=== PATIENT | female | born 1975 ===

== ENCOUNTER 2016-08-10 23:32 | Emergency (ER) | payer OTHER ==
--- NOTE | 2016-08-11 00:26 | ED ---
Influenza-Like Illness - HPI Summary HPI Summary: Pt here w/ influenza-like sx x 5 days. Started as swelling of neck glands w/ ST/ irritation. She then developed MOELLER, nasal congestion, intermittent otalgia and PND. She now has a dry cough - chest burning w/ deep breath and body aches all over. Reduced appetite and stomach is "off". No yash nausea, vomiting, diarrhea. 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 She has tried mouth wash and OTC pain meds. Here tonight because she's feeling worse and wants to know what's wrong. Denies h/o pneumonia, bronchitis, RSV, asthma. H/o smoking 10 years ago - otherwise healthy. - History of Current Complaint Chief Complaint: EDFluSymptoms Time Seen by Provider: 08/10/16 23:44 Hx Obtained From: Patient - Allergy/Home Medications Allergies/Adverse Reactions: Allergies Allergy/AdvReac Type Severity Reaction Status Date / Time No Known Allergies Allergy Verified 08/10/16 23:39 PMH/Surg Hx/FS Hx/Imm Hx Previously Healthy: Yes Endocrine/Hematology History: Denies: Hx Diabetes, Autoimmune Disease Respiratory History: Denies: Hx Asthma, Hx Chronic Bronchitis, Hx Chronic Obstructive Pulmonary Disease (COPD), Hx Pneumonia, Hx Pulmonary Embolism, Hx Seasonal Allergies - Immunization History Immunizations Up to Date: Yes Infectious Disease History: No Infectious Disease History: Denies: Traveled Outside the [place] in Last 30 Days - Family History Known Family History: Positive: None - Social History Occupation: Employed Full-time Lives: With Family Alcohol Use: None Hx Substance Use: No Substance Use Type: Reports: None Smoking Status (MU): Former Smoker - quit 10 years ago Review of Systems Positive: Fever, Chills, Fatigue Eyes: Negative Positive: Sore Throat, Ear Ache, Nasal Discharge Cardiovascular: Negative Positive: Cough - see HPI. Negative: Shortness Of Breath Positive: Nausea - see HPI. Negative: Abdominal Pain, Vomiting, Diarrhea Positive: no symptoms reported Musculoskeletal: Other - see HPI Skin: Negative Negative: Rash Positive: Headache. Negative: Weakness, Paresthesia, Numbness, Syncope, Slurred Speech Positive: Anxious All Other Systems Reviewed And Are Negative: Yes Physical Exam Triage Information Reviewed: Yes Vital Signs On Initial Exam: Initial Vitals Temp Pulse Resp BP Pulse Ox 97.4 F 80 14 121/94 100 08/10/16 23:37 08/10/16 23:37 08/10/16 23:37 08/10/16 23:37 08/10/16 23:37 Vital Signs Reviewed: Yes Appearance: Positive: Well-Appearing - pt's voice is somewhat coarse and she complains of frustration w/ sx but declines meds - just wants to know why she feels this way, No Pain Distress, Well-Nourished Skin: Positive: Warm, Dry - no rash Head/Face: Positive: Normal Head/Face Inspection - Sinuses NTTP Eyes: Positive: Normal, EOMI, Conjunctiva Clear. Negative: Conjunctiva Inflammed, Discharge ENT: Positive: Hearing grossly normal, Pharynx normal, Nasal congestion, TMs normal - opacities consistent w/ scarring (NOTE: h/o myringotomy). Negative: Tonsillar swelling, Tonsillar exudate Dental: Negative: Abscess @ Neck: Positive: Supple, Nontender, Enlarged Nodes @ - shoddy CC LN's Respiratory/Lung Sounds: Positive: Clear to Auscultation, Breath Sounds Present. Negative: Rales, Rhonchi, Stridor, Wheezes Cardiovascular: Positive: Normal, RRR, S1, S2 Abdomen Description: Positive: Nontender, No Organomegaly, Soft Bowel Sounds: Positive: Present Musculoskeletal: Positive: Normal, Strength/ROM Intact Neurological: Positive: Normal, Sensory/Motor Intact, Alert, Oriented to Person Place, Time, CN Intact II-III Psychiatric: Positive: Anxious Diagnostics - Vital Signs Vital Signs Temp Pulse Resp BP Pulse Ox 08/10/16 23:37 97.4 F 80 14 121/94 100 - Laboratory Lab Statement: Any lab studies that have been ordered have been reviewed, and results considered in the medical decision making process. Flu Symptom Course/Dx - Diagnoses Provider Diagnoses: URI (upper respiratory infection) Discharge - Discharge Plan Condition: Stable Disposition: HOME Patient Education Materials: Upper Respiratory Infection (ED) Forms: *Work Release Referrals: [facility] [place] [facility]IAN REFERRAL [Outside] No Primary Care Phys,NOPCP [Primary Care Provider] - Additional Instructions: Follow-up with PCP if symptoms persist or worsen. *If you develop chest pain, difficulty breathing, intractable vomiting or fever > 103F despite ibuprofen and acetaminophen, return to ED
[2016-08-11 01:43] VITALS: BP 128/74
--- NOTE | 2016-08-11 13:17 | RAD ---
INDICATION: Cough, fever, weakness. Neck swelling and sore throat. COMPARISON: None. TECHNIQUE: Dual energy PA and routine lateral views of the chest were obtained. REPORT: Clear lungs and pleural spaces. Negative for pneumothorax. The heart, pulmonary vasculature, and mediastinal contours are unremarkable. Unremarkable osseous structures and soft tissue contours. IMPRESSION: No evidence for pneumonia. No evidence for acute intrathoracic disease.
== END 2016-08-11 01:41 | disposition home or self-care (01) ==
LOC: ED 23:32
DX: J06.9 Acute upper respiratory infection, unspecified (principal); R51 Headache; R05 Cough; R11.0 Nausea; J02.9 Acute pharyngitis, unspecified; R50.9 Fever, unspecified; Z87.891 Personal history of nicotine dependence
CPT/HCPCS: 71020; 87502; 99282